=== PATIENT | female | born 1970 | race Caucasian/White ===

== ENCOUNTER → 2016-08-14 | Outpatient (CLI) | payer OTHER ==
[~2016-08-14] MED LIST: BACTRIM DS TABL1 TA1 PO; CELEXA20 MG PO; CIPRO PO; CORTISPORIN-TC10 M1 AS; DIAZEPAM PO; DICLOFENAC PO; FLEXERIL10 MG PO; KEFLEX500 M1 PO; LORTAB 5-325 M1 EACH PO; LORTAB 5/500 TA1 TA1 PO; NO MEDICATIONS; NORCO 10-325 TA1 TAB PO; NORCO 7.5-3251 EACH PO; ORUDIS75 M1 PO; PREDNISONE PO; ROBAXIN 750750 M1 PO; VOLTAREN50 MG PO; ZANAFLEX PO
--- NOTE | ~2016-08-14 | US17 ---
[facility] A Service of [facility] RADIOLOGY TEXT RESULTS PATIENT: GONZALES BURDEN LOCATION: [facility] : 72 UNIT #: [id number] AGE: [address]: Jody Curiel MD SEX: F ORDER DR: [id number] [facility]. [place], [place] [address] [id number] O MR#: [id number] Acc #: [id number] NAME: GONZALES BURDEN. : 1970 SEX: F STUDY DATE/TIME: 08/14/2016 12:10 UNIT: [facility] ROOM: STUDY DESCRIPTION: US Breast Bilateral Attending Physician: Jody Curiel M.D. Ordering Physician: Jody Curiel M.D. Primary Care Physician: Jody Curiel M.D. MEDICAL IMAGING REPORT This report is preliminary unless electronic signature is present EXAM Targeted ultrasound of both nipple-areolar complexes. DATE OF EXAM 08/14/2016 INDICATIONS 45-year-old female complaining of bilateral nipple pain and a "pulling" sensation in both nipples that has been intermittent for the past week. TECHNIQUE Targeted ultrasound of the nipple-areolar complexes was performed bilaterally in the area of patient's pain symptoms. COMPARISON Correlation is made with mammography, 08/14/2016. FINDINGS The patient was initially scanned independently by the technologist and then rescanned in my presence. RIGHT BREAST: Imaging of the nipple-areolar complex on the right demonstrates no cystic or solid mass or persistent shadowing abnormality. No ductal ectasia identified. Imaging findings are concordant with mammography. LEFT BREAST: Imaging of the nipple-areolar complex on the left was also performed and is negative. No cystic or solid mass or ductal ectasia or other suspicious finding. Imaging findings are concordant with mammography, same date. The patient denied a palpable abnormality on either side. Absent new or worsening symptoms on either side or a new palpable abnormality, clinical [facility] A Service [facility] RADIOLOGY TEXT RESULTS PATIENT: GONZALES BURDEN LOCATION: [facility] : 71 UNIT #: [id number] AGE: [address]: Jody Curiel MD SEX: F ORDER DR: consideration should determine additional imaging at this point and return to an annual screening regimen is recommended. Findings and recommendations were discussed with the patient. She voiced understanding and agreement. IMPRESSION 1. Ultrasound evaluation of the right nipple areolar complex is negative. 2. Ultrasound evaluation of the left nipple areolar complex is negative. 3. Clinical considerations to determine additional imaging at this time. Please see the separately dictated diagnostic mammogram for further details. Return of screening is recommended. Patients over the age of 40 are entered into a reminder system with target due date for the next mammogram. A result letter will also be sent to the patient. BIRADS: 1 Negative. Dictated by... Travon Montes De Oca M.D. THIS IS AN ELECTRONICALLY VERIFIED REPORT Travon Montes De Oca M.D. at 08/15/2016 7:24 AM CUATE/osiris TD: 08/14/2016 17:01 JOB #: [id number] MEDICAL IMAGING REPORT COPY
--- NOTE | ~2016-08-14 | MY6 ---
[facility] A Service of [facility] RADIOLOGY TEXT RESULTS PATIENT: GONZALES BURDEN LOCATION: [facility] : 71 UNIT #: [id number] AGE: [address]: Jody Curiel MD SEX: F ORDER DR: [id number] [facility] [address] [facility]. [place], [place] [address] [id number] O MR#: [id number] Acc #: [id number] NAME: GONZALES BURDEN. : 1970 SEX: F STUDY DATE/TIME: 08/14/2016 11:21 UNIT: [facility] ROOM: STUDY DESCRIPTION: MY Mammogram Dx Dig G[place]ardo Attending Physician: Jody Curiel M.D. Ordering Physician: Jody Curiel M.D. Primary Care Physician: Jody Curiel M.D. MEDICAL IMAGING REPORT This report is preliminary unless electronic signature is present EXAM Bilateral digital diagnostic mammogram with CAD and targeted bilateral breast ultrasound, 08/14/2016. INDICATION 45-year-old female complaining of nipple areolar complex pain bilaterally for approximately 1 week. She denies a palpable abnormality. No personal or family history of breast cancer. No prior breast surgeries. TECHNIQUE CC, MLO, and true lateral views of the breasts were obtained and reviewed with an approved CAD device. Thereafter, targeted ultrasound of the nipple-areolar complexes was performed bilaterally given the patient's complaint of a "pulling" sensation in both nipples. FINDINGS MAMMOGRAPHIC FINDINGS: Breast parenchyma is composed of scattered fibroglandular densities. The pattern is unchanged. There is no new dominant nodule, mass, or suspicious clustered microcalcifications. There is a benign intramammary node on the left near the axillary tail. This is stable. There is no subareolar density on either side to explain the patient's pain in the nipple-areolar complexes bilaterally. Targeted ultrasound both nipple-areolar complexes was thereafter performed. ULTRASOUND FINDINGS: The patient was initially scanned independently and then rescanned in my presence. Right breast: Imaging of the nipple-areolar complex on the right is negative. There is no cystic or solid mass or persistent shadowing abnormality. Imaging findings are concordant with mammography. Left breast: Imaging of the nipple-areolar complex on the left is negative. There is no cystic or solid mass or persistent shadowing [facility] A Service of [facility] RADIOLOGY TEXT RESULTS PATIENT: GONZALES BURDEN LOCATION: [facility] : 71 UNIT #: [id number] AGE: [address]: Jody Curiel MD SEX: F ORDER DR: abnormality. Imaging findings are concordant with mammography. Clinical considerations should determine additional imaging at this time. Absent new or worsening symptoms in either breast, the patient should return for routine screening mammogram in 1 year. Findings and recommendations were discussed with the patient here in the department and she voiced understanding and agreement. IMPRESSION Negative bilateral digital diagnostic mammogram and targeted ultrasound of the nipple-areolar complexes bilaterally. Clinical considerations to determine additional imaging at this point. Return to an annual screening regimen is recommended. See discussion above. Patients over the age of 40 are entered into a reminder system with target due date for the next mammogram. A result letter will also be sent to the patient. BIRADS: 1 Negative Dictated by... Travon Montes De Oca M.D. THIS IS AN ELECTRONICALLY VERIFIED REPORT Travon Montes De Oca M.D. at 08/15/2016 7:25 AM CUATE/roxie TD: 08/14/2016 17:10 JOB #: [id number] MEDICAL IMAGING REPORT COPY
== END | disposition home or self-care (01) ==
LOC: CMAM 10:39
DX: N64.4 Mastodynia (principal)
CPT/HCPCS: 76641; G0204

== ENCOUNTER → 2016-08-17 | Outpatient (CLI) | payer OTHER ==
--- NOTE | ~2016-08-17 | CT55 ---
[facility] A Service of [facility] RADIOLOGY TEXT RESULTS PATIENT: GONZALES BURDEN LOCATION: [facility] : 72 UNIT #: [id number] AGE: [address]: Jody Curiel MD SEX: F ORDER DR: [id number] [facility]. [place], [place] [address] [id number] O MR#: [id number] Acc #: [id number] NAME: GONZALES BURDEN : 1970 SEX: F STUDY DATE/TIME: 08/17/2016 9:24 UNIT: [facility] ROOM: STUDY DESCRIPTION: CT Chest W Con Attending Physician: Jody Curiel M.D. Referring Physician: Jody Curiel M.D. Ordering Physician: Jody Curiel M.D. Primary Care Physician: Jody Curiel M.D. MEDICAL IMAGING REPORT This report is preliminary unless electronic signature is present EXAM Chest CT with contrast HISTORY Abnormal chest x-ray at an outside institution recently on 08/10/2016 demonstrating a lung nodule. Evaluate significance. TECHNIQUE Axial images were obtained with contrast and evaluated at lung and mediastinal windows. 100 mL of Isovue was used. This CT exam was performed with one or more of the following radiation dose reduction techniques: Automatic exposure control, adjustment of mA and/or kV according to patient size, and iterative reconstruction. FINDINGS Chest images at mediastinal window show no enlarged mediastinal or hilar lymph nodes. There is no evidence of pleural or pericardial fluid. Lung window imaging shows both lungs to be clear. No suspicious nodules or infiltrates are seen. No evidence of bronchiectasis. IMPRESSION Negative chest CT. No suspicious masses are seen. Dictated by... Austen Marino M.D. THIS IS AN ELECTRONICALLY VERIFIED REPORT Austen Marino M.D. at 08/21/2016 11:01 AM RLF/juanito TD: 08/20/2016 10:32 [facility] A Service [facility] RADIOLOGY TEXT RESULTS PATIENT: GONZALES BURDEN LOCATION: [facility] : 71 UNIT #: [id number] AGE: [address]: Jody Curiel MD SEX: F ORDER DR: JOB #: [id number] MEDICAL IMAGING REPORT Page 1 of 1 COPY
[2016-08-17 09:26] LABS: POC - CREATININE 1.06 mg/dL (0.44-1.03)
== END | disposition home or self-care (01) ==
LOC: CCAT 08:35
PROVIDERS: Family Medicine
DX: R93.8 Abnormal findings on diagnostic imaging of other specified body structures (principal)
CPT/HCPCS: 71260; 82565; Q9967

== ENCOUNTER 2016-11-07 10:49 | Emergency (ER) | payer OTHER ==
--- NOTE | ~2016-11-07 | CR72 ---
[facility] A Service of [facility] & [facility] RADIOLOGY TEXT RESULTS PATIENT: GONZALES BURDEN LOCATION: [facility] : 72 UNIT #: [id number] AGE: [address]: Sandeep Bacon DO SEX: F ORDER DR: [id number] [facility] [address] [place], [place] [address] [id number] E MR#: [id number] Acc #: [id number] NAME: GONZALES BURDEN : 1970 SEX: F STUDY DATE/TIME: 11/07/2016 14:45 UNIT: [facility] ROOM: STUDY DESCRIPTION: CR Chest Single View Portable Attending Physician: Sandeep Bacon D.O. Ordering Physician: Sandeep Bacon D.O. Primary Care Physician: Jody Curiel M.D. MEDICAL IMAGING REPORT This report is preliminary unless electronic signature is present EXAM Portable chest, 1 view, 11/07/16. COMPARISON STUDIES 04/23/16 CLINICAL HISTORY Dizziness, short of air for 4 days. FINDINGS A single AP portable view of the chest shows both lungs to be clear. The heart is normal in size. The mediastinal contour is normal. No significant bone abnormalities are seen. IMPRESSION Normal/negative portable chest. Dictated by... Demario Suero M.D. THIS IS AN ELECTRONICALLY VERIFIED REPORT Demario Suero M.D. at 11/09/2016 2:18 PM JUAN DAVID/osiris TD: 11/07/2016 19:03 JOB #: [id number] MEDICAL IMAGING REPORT Page 1 of 1 COPY
--- NOTE | ~2016-11-07 | CT4 ---
[facility] A Service of [facility] & [facility] RADIOLOGY TEXT RESULTS PATIENT: GONZALES BURDEN LOCATION: [facility] : 71 UNIT #: [id number] AGE: [address]: Sandeep Bacon DO SEX: F ORDER DR: [id number] [facility] [address] [place], [place] [address] [id number] E MR#: [id number] Acc #: [id number] NAME: GONZALES BURDEN. : 1970 SEX: F STUDY DATE/TIME: 11/07/2016 11:50 UNIT: [facility] ROOM: STUDY DESCRIPTION: CT Abd and Pelv Wo Cont Attending Physician: Sandeep Bacon D.O. Ordering Physician: Sandeep Bacon D.O. Primary Care Physician: Jody Curiel M.D. MEDICAL IMAGING REPORT This report is preliminary unless electronic signature is present EXAM Abdomen and pelvis CT, no contrast, 11/07/2016 INDICATIONS A 45-year-old female with right-sided flank and lower abdominal pain with nausea for 4 days. Symptoms worse today. HISTORY History of appendectomy, hysterectomy, cholecystectomy and abdominal hernia repair along with tubal ligation. TECHNIQUE Noncontrast CT of the abdomen and pelvis was performed. No comparisons. This CT exam was performed with one or more of the following radiation dose reduction techniques: automatic exposure control, adjustment of mA and/or kV according to patient size, and iterative reconstruction. FINDINGS CT abdomen: Markedly degraded by noncontrast technique. Included lung bases clear. No effusion. Aorta unremarkable. The spleen, adrenal glands, pancreas and liver are unremarkable. The gallbladder is surgically absent. Kidneys demonstrate no hydronephrosis or radiopaque stone. Visualized ureter is unremarkable. CT pelvis: There is streak artifact from lumbosacral fusion procedure. Postop changes of anterior abdominal wall hernia repair present. Bladder unremarkable. Uterus surgically absent. No free fluid or drainable fluid collection in the pelvis. Appendix surgically absent. No evidence of bowel obstruction or inflammatory change of the bowel. There are follicles in both ovaries. Dominant follicle or small cyst in the right ovary measures 2.8 cm. These appear physiologic. Inguinal canals are [facility]. [facility] A Service of [facility] & [facility] RADIOLOGY TEXT RESULTS PATIENT: [facility]ALES BURDEN [id number] 71 UNIT #: [id number] AGE: [address]: Sandeep Bacon DO SEX: F ORDER DR: unremarkable. No suspicious bone lesion. IMPRESSION 1. No clearly acute process identified. No bowel obstruction drainable fluid collection or focal area of inflammatory change. 2. Physiologic appearing follicles with a small cyst in the right ovary measuring 2.8 cm. 3. Extensive postoperative changes include prior cholecystectomy, hysterectomy, tubal ligation, lumbar fusion and anterior abdominal wall hernia repair procedures. Dictated by... Travon Montes De Oca M.D. THIS IS AN ELECTRONICALLY VERIFIED REPORT Travon Montes De Oca M.D. at 11/07/2016 5:06 PM Amado TD: 11/07/2016 13:57 JOB #: [id number] MEDICAL IMAGING REPORT Page 1 of 1 COPY
--- NOTE | ~2016-11-07 | MR18 ---
[facility] A Service of [facility] & [facility] RADIOLOGY TEXT RESULTS PATIENT: GONZALES BURDEN LOCATION: [facility] : 72 UNIT #: [id number] AGE: [address]: Sandeep Bacon DO SEX: F ORDER DR: [id number] [facility] [address] [place], [place] [address] [id number] E MR#: [id number] Acc #: [id number] NAME: GONZALES BURDEN. : 1970 SEX: F STUDY DATE/TIME: 11/07/2016 12:33 UNIT: [facility] ROOM: STUDY DESCRIPTION: MR Brain Wo Contrast Attending Physician: Sandeep Bacon D.O. Ordering Physician: Sandeep Bacon D.O. Primary Care Physician: Jody Curiel M.D. MRI CENTER REPORT This report is preliminary unless electronic signature is present. EXAM MRI of the brain without HISTORY Headaches and dizziness for years worse in the last 3 weeks per patient. The patient had back surgery 3 weeks ago. Known cyst on the right side of brain per patient. History of hypertension. TECHNIQUE MRI of the brain was performed without contrast using routine 1.5T imaging technique. COMPARISON Comparison is from 03/24/2012. FINDINGS There is no evidence for a recent ischemic insult on the diffusion series. Redemonstrated is the probable arachnoid cyst overlying the right parietal lobe with associated bony remodeling. It measures about 3.6 x 3.4 x 2.3 cm dimension. It should be an incidental finding and it is stable. Otherwise, there is no extra-axial fluid collection. The ventricles are normal in size and configuration. The woodward-white junction is age appropriate. There is no MRI evidence for intracranial hemorrhage. There is no Chiari-1 malformation. The major intracranial flow voids are maintained. The mastoid air cells are clear. Paranasal sinuses are essentially clear. IMPRESSION 1. No acute intracranial abnormality suspected. Redemonstration of a benign-appearing arachnoid cyst overlying the right parietal lobe medially unchanged from 2011. This should be an incidental finding. STAT * RESULT [facility]. [facility] A Service of [facility] RADIOLOGY TEXT RESULTS PATIENT: GONZALES BURDEN LOCATION: [facility] : 72 UNIT #: [id number] AGE: [address]: Sandeep Bacon DO SEX: F ORDER DR: Dictated by... Meredith Bedolla M.D. THIS IS AN ELECTRONICALLY VERIFIED REPORT Meredith Bedolla M.D. at 11/07/2016 2:31 PM CARLITA/umang TD: 11/07/2016 14:08 JOB #: [id number] MRI CENTER REPORT Page 1 of 1 COPY
[2016-11-07 11:38] LABS: BASOPHIL# 0.1 X10e3 (0-0.3); BASOPHIL% 0.5 % (0-2.5); EOSINOPHIL% 0.1 % (0.0-7.0); HEMOGLOBIN 13.8 gm/dL (12.0-16.0); LYMPHOCYTE% 12.9 % (17.0-45.0); MEAN CELL VOLUME 93.3 FL (83-96); MEAN CORPUSCULAR HEMOGLOBIN 30.7 PG (28-34); MEAN CORPUSCULAR HGB CONC 32.9 g/dL (30-36); MEAN PLATELET VOLUME 9.2 FL (6.5-11.5); MONOCYTE# 1.4 X10e3 (0-1.0); NEUTROPHIL# 18.7 X10e3 (1.5-7.1); NEUTROPHIL% 80.5 % (40-75); PLATELET COUNT 266 X10e3 (140-420); RED BLOOD COUNT 4.51 X10e (3.90-5.30); RED CELL DISTRIBUTION WIDTH 12.9 % (11.0-15.5); WHITE BLOOD COUNT 23.2 X10e3 (4.0-10.5)
[2016-11-07 11:44] LABS: DIFF IND YES
[2016-11-07 11:52] LABS: URINE SOURCE CLEAN CATCH
[2016-11-07 11:56] LABS: URINE APPEARANCE CLOUDY; URINE BLOOD NEG (NEG); URINE COLOR DK YELLOW; URINE GLUCOSE NEG (NEG); URINE KETONE NEG (NEG); URINE LEUKOCYTE ESTERASE NEG (NEG); URINE NITRATE NEG (NEG); URINE PROTEIN NEG (NEG); URINE SPECIFIC GRAVITY 1.026 (1.003-1.035)
[2016-11-07 12:03] LABS: URINE BILIRUBIN NEG (NEG)
[2016-11-07 12:04] LABS: CULTURE INDICATED? NO
[2016-11-07 12:08] LABS: PLATELET ESTIMATE NORMAL (NORMAL); RBC NORMAL YES
[2016-11-07 12:16] LABS: ALBUMIN SERUM 4.4 g/dL (3.5-5.0); ALKALINE PHOSPHATASE 74 U/L (32-92); ALT (SGPT) 27 U/L (10-40); AST (SGOT) 20 U/L (10-42); BILIRUBIN,TOTAL 0.8 mg/dL (0.2-2.0); BLOOD UREA NITROGEN 10 mg/dL (9-23); BUN/CREATININE RATIO 14.28; CALCIUM SERUM 9.4 mg/dL (8.4-10.2); CARBON DIOXIDE 21 mmol/L (22-31); CHLORIDE 105 mmol/L (100-111); CREATININE SERUM 0.7 mg/dL (0.6-1.4); GLOM FILT RATE Estimated 105.4 mL/min (>60); GLUCOSE FASTING 97 mg/dL (70-110); LIPASE 16 U/L (22-51); PROTEIN TOTAL SERUM 8.1 g/dL (6.0-8.3); SODIUM 137 mmol/L (135-145)
[2016-11-07 12:18] LABS: BILIRUBIN, DIRECT <0.1 mg/dL (0.0-0.2); BILIRUBIN,INDIRECT 0.7 mg/dL (0.0-0.9)
[2016-11-07 14:26] LABS: POC - CKMB <1.0 ng/mL (0.0-7.9); POC - TROPONIN <0.05 ng/mL (<=0.05)
== END 2016-11-07 16:21 | disposition home or self-care (01) ==
LOC: CED 10:49
PROVIDERS: Emergency Medicine
DX: N83.201 Unspecified ovarian cyst, right side (principal); D72.829 Elevated white blood cell count, unspecified; R42 Dizziness and giddiness; F32.9 Major depressive disorder, single episode, unspecified; Z90.49 Acquired absence of other specified parts of digestive tract
CPT/HCPCS: 36415; 70551; 71010; 74176; 80048; 80076; 81003; 82553; 83690; 84484; 85025; 96360; 99284